=== PATIENT | female | born 1995 | race Caucasian/White ===

== ENCOUNTER 2016-10-02 18:41 | Emergency (ER) | payer BC ==
--- NOTE | 2016-10-02 19:50 | ED ---
Head Injury - HPI Summary HPI Summary: 21F presents with left shoulder and head injury today. She was running and tripped and fell onto her left shoulder and head. She denies any LOC. She has a moderate headache and pain in left shoulder. She has full ROM of shoulder. She has abrasions on elbows. She denies any nausea or vomiting. She is not on any blood thinners. She denies any numbness or tingling. She is right handed. - History Of Current Complaint Chief Complaint: EDHeadInjury Stated Complaint: FALL/HEAD INJURY Time Seen by Provider: 10/02/16 19:25 Hx Last Menstrual Period: just ended - Allergies/Home Medications Allergies/Adverse Reactions: Allergies Allergy/AdvReac Type Severity Reaction Status Date / Time No Known Allergies Allergy Verified 02/28/14 09:17 PMH/Surg Hx/FS Hx/Imm Hx Endocrine/Hematology History: Denies: Hx Anticoagulant Therapy Respiratory History: Denies: Hx Asthma Neurological History: Denies: Other Neuro Impairments/Disorders - Surgical History Surgery Procedure, Year, and Place: NONE PERTINENT Infectious Disease History: No Infectious Disease History: Reports: Hx Shingles Denies: Traveled Outside the [place] in Last 30 Days - Family History Known Family History: Positive: Cardiac Disease - Social History Alcohol Use: Weekly Substance Use Type: Reports: None Smoking Status (MU): Never Smoked Tobacco Review of Systems Negative: Fever Negative: Chest Pain Negative: Shortness Of Breath Positive: Myalgia - left shoulder Positive: Headache All Other Systems Reviewed And Are Negative: Yes Physical Exam Triage Information Reviewed: Yes Vital Signs On Initial Exam: Initial Vitals Temp Pulse Resp BP Pulse Ox 98.4 F 74 20 142/99 100 10/02/16 18:46 10/02/16 18:46 10/02/16 18:46 10/02/16 18:46 10/02/16 18:46 Vital Signs Reviewed: Yes Appearance: Positive: Well-Appearing Skin: Positive: Warm, Dry Head/Face: Positive: Normal Head/Face Inspection, Other - no step off, raccoon eyes, rust sign Eyes: Positive: Normal, EOMI, CATHY, Conjunctiva Clear ENT: Positive: Normal ENT inspection, Pharynx normal, TMs normal Respiratory/Lung Sounds: Positive: Clear to Auscultation, Breath Sounds Present Cardiovascular: Positive: Normal, RRR Musculoskeletal: Positive: Strength/ROM Intact - of left shoulder with pain, Other - good pulses, capillary refill <2 secs, no step off, tender from neck to left shoulder Neurological: Positive: Sensory/Motor Intact, Alert, Oriented to Person Place, Time, CN Intact II-III - [place] Coma Scale Best Eye Response: 4 - Spontaneous Best Motor Response: 6 - Obeys Commands Best Verbal Response: 5 - Oriented Diagnostics - Vital Signs Vital Signs Temp Pulse Resp BP Pulse Ox 10/02/16 19:20 98.4 F 74 20 142/99 100 10/02/16 18:46 98.4 F 74 20 142/99 100 - Laboratory Lab Statement: Any lab studies that have been ordered have been reviewed, and results considered in the medical decision making process. Head Injury Course/Dx Course Of Treatment: 21F presents with head injury and left shoulder pain s/p tripping while running and landing on areas. denies any LOC, n/v. has not taken anything for pain. has full ROM of shoulder. no step of scalp or shoulder. normal neuro exam. explained do not need CT head due to thai CT rules. offered xray shoulder but patient declined. told to return if anything changes. patient understands and agrees with plan. - Diagnoses Differential Diagnosis/HQI/PQRI: Concussion Without LOC, Contusion, Other - shoulder pain, fracture Provider Diagnoses: Head injury, Left shoulder pain Discharge - Discharge Plan Condition: Good Disposition: HOME Patient Education Materials: Head Injury (ED) Referrals: Jay Mcdonough [employer] [Primary Care Provider] - Additional Instructions: Take Tylenol and ibuprofen every 6 hours as needed for pain Ice/heat shoulder Can rest for one day and then need to do range of motion activities for shoulder Is normal to feel sleeper than usual and to have a change in appetite with head injury Follow up with primary within 5 days if no improvement Return to ED if develop vomiting, severe headache, change in behavior, or any new or worsening symptoms
[2016-10-02 20:11] VITALS: BP 128/74
== END 2016-10-02 20:10 | disposition home or self-care (01) ==
LOC: ED 18:41
DX: S09.90XA Unspecified injury of head, initial encounter (principal); M25.512 Pain in left shoulder; R51 Headache; M79.1 Myalgia; W19.XXXA Unspecified fall, initial encounter; Y93.9 Activity, unspecified; Y92.9 Unspecified place or not applicable
CPT/HCPCS: 99282

== ENCOUNTER 2021-03-31 17:58 | Inpatient (IN) ==
[2021-03-31] MEDS ORDERED: Dinoprostone 10 MG VAG.SUPP VAGINAL ONE (20:12)
[2021-03-31] MEDS ORDERED: Lactated Ringers 1000 ml BAG 1,000 ML IV ONE (20:32)
[2021-03-31] MEDS ORDERED: Buffered Lidocaine 1% SYRIN 1 ml INTRADERM ONE (20:32)
[2021-03-31] MEDS ORDERED: Lactated Ringers 1000 ml BAG 1,000 ML IV SCH (21:00)
[2021-03-31 21:57] LABS: Rapid COVID-19 Molecular Undetected (Undetected)
[2021-03-31 22:02] LABS: Urine Benzodiazepine Screen None Detected (None Detect); Urine Cannabinoids Screen None Detected (None Detect); Urine Opiates Screen None Detected (None Detect)
[2021-04-01] MEDS ORDERED: Oxytocin in LR 20 UNITS/1,000 ML BAG IVPB SCH (15:30)
[2021-04-01 15:49] LABS: Hematocrit 38 % (35-47); Mean Corpuscular HGB Conc 35 g/dL (31-36); Mean Corpuscular Hemoglobin 31 pg (27-31); Mean Corpuscular Volume 89 fL (80-97); Mean Platelet Volume 11.9 fL (7.4-10.4); Platelet Count 151 10^3/uL (150-450); Red Cell Distribution Width 14 % (10-15); White Blood Count 11.3 10^3/uL (3.5-10.8)
[2021-04-01 15:51] LABS: ABS Basophils 0.1 10^3/ul (0-0.2); ABS Eosinophils 0.1 10^3/ul (0-0.6); ABS Lymphocytes 1.9 10^3/ul (1.0-4.8); ABS Monocytes 0.8 10^3/ul (0-0.8); ABS Neutrophils 8.5 10^3/ul (1.5-7.7); Eosinophil % 0.7 %; Lymphocyte % 16.4 %
[2021-04-01 16:10] LABS: Albumin 3.3 g/dL (3.2-5.2); Calcium 8.8 mg/dL (8.6-10.3); Potassium 4.1 mmol/L (3.5-5.0); Total Bilirubin 0.3 mg/dL (0.2-1.0)
[2021-04-01 16:16] LABS: Albumin/Globulin Ratio 1.2 (1-3); Globulin 2.8 g/dL (2-4); Total Protein 6.1 g/dL (6.4-8.9); Uric Acid 5.5 mg/dL (2.3-6.6)
[2021-04-01 16:32] LABS: Large Platelets Present
[2021-04-01] MEDS ORDERED: OBEPIDURAL 250 ML EPIDURAL ONE (19:18)
[2021-04-01 21:52] LABS: Urine Appearance Clear; Urine Bilirubin Negative (Negative); Urine Blood Negative (Negative); Urine Color Colorless; Urine Glucose Negative (Negative); Urine Ketones Negative (Negative); Urine Nitrite Negative (Negative); Urine Protein Negative (Negative); Urine Urobilinogen Negative (Negative)
[2021-04-02] MEDS ORDERED: Oxytocin in LR 20 UNITS/1,000 ML BAG IVPB SCH (02:00)
[2021-04-02] MEDS ORDERED: Witch Hazel PAD JAR TOPICAL PRN (02:34)
[2021-04-02] MEDS ORDERED: Dibucaine 1% OINT 28.35 GM TUBE PR PRN (02:34)
[2021-04-02] MEDS ORDERED: Lactated Ringers 1000 ml BAG 1,000 ML IV SCH (03:00)
[2021-04-02] MEDS ORDERED: Lidocaine 1% VIAL 10 MG/ML VIAL ONE (05:11)
[2021-04-02] MEDS ORDERED: Measles, Mumps,Rubella VACC 0.5 ML/VIAL SUBCUT ONE (09:00)
[2021-04-03 09:14] LABS: ABS Basophils 0.1 10^3/ul (0-0.2); ABS Eosinophils 0.2 10^3/ul (0-0.6); ABS Lymphocytes 2.4 10^3/ul (1.0-4.8); ABS Monocytes 1.1 10^3/ul (0-0.8); ABS Neutrophils 9.4 10^3/ul (1.5-7.7); Eosinophil % 1.8 %; Hematocrit 36 % (35-47); Hemoglobin 11.9 g/dL (12.0-16.0); Mean Corpuscular HGB Conc 34 g/dL (31-36); Mean Corpuscular Hemoglobin 30 pg (27-31); Mean Corpuscular Volume 90 fL (80-97); Mean Platelet Volume 11.4 fL (7.4-10.4); Nucleated Red Blood Cells % 0.1; Platelet Count 139 10^3/uL (150-450); Red Blood Count 3.94 10^6 /uL (3.70-4.87); Red Cell Distribution Width 14 % (10-15); White Blood Count 13.2 10^3/uL (3.5-10.8)
[2021-04-03] MEDS ORDERED: Measles, Mumps,Rubella VACC 0.5 ML/VIAL SUBCUT ONE (11:00)
[2021-04-04 09:00] VITALS: BP 135/83
== END 2021-04-04 10:51 | disposition home or self-care (01) | DRG 560 ==
LOC: MCHOBOUT 17:58 → MCHOB 20:33
PROVIDERS: ADMIT Midwife; ATTEND Midwife